=== PATIENT | male | born 1960 | race Caucasian/White ===

== ENCOUNTER 2017-09-09 19:48 | Emergency (ER) | payer OTHER ==
[~2017-09-09] VITALS: Ht 177.8 cm; Wt 112.7 kg
[~2017-09-09 19:48] MED LIST: ADVAIR HFA120 INHALA IH; ALDACTONE25 MG PO; ALLOPURINOL100 MG PO; CARDURA2 M1 PO; CARDURA4 MG PO; CARDURA8 MG PO; FUROSEMIDE40 MG PO; KLOR-CON 1010 ME1 PO; LASIX20 MG PO; LEVOFLOXACIN750 MG PO; MS CONTIN,ORAMO30 MG PO; NASONEX17 GM BOTH NARES; PROVENTIL HFA6.7 GM IH; ROXICODONE5 MG PO; SINGULAIR10 MG PO; SYNTHROID112 MCG PO; SYNTHROID125 MCG PO; VISINE15 ML BOTH EYES; VITAMIN D1000 INTUN PO; ZYRTEC10 M2 PO
[2017-09-09 22:00] LABS: HEMATOCRIT 40.9 % (38.0-50.0); HEMOGLOBIN 14.6 G/DL (12.5-16.6); MCH 34.8 PG (29.0-34.0); MCHC 35.7 G/DL (30.0-36.0); MCV 97.6 FL (86-99); PLATELET COUNT 86 K/uL (156-360); RBC DIS.WIDTH-CV 13.2 % (11.8-14.6); RED BLOOD COUNT 4.19 M/uL (4.00-5.50)
[2017-09-09 22:08] LABS: CHLORIDE 100 mEq/L (99-109); POTASSIUM 3.8 mEq/L (3.7-5.4); SODIUM 139 mEq/L (136-147)
[2017-09-09 22:10] LABS: GLUCOSE 98 mg/dL (70-99)
[2017-09-09 22:11] LABS: TOTAL PROTEIN 7.1 g/dL (6.4-8.3)
[2017-09-09 22:12] LABS: TOTAL BILIRUBIN 2.3 mg/dL (0.0-1.0)
[2017-09-09 22:14] LABS: ALKALINE PHOSPHATASE 111 IU/L (3-129); CREATININE 1.6 mg/dL (0.6-1.3); GFR ESTIMATE (CALCULATED) 48 mL/min/ (58.99-99999)
[2017-09-09 22:15] LABS: UREA NITROGEN (BUN) 22 mg/dL (9-23)
[2017-09-09 22:16] LABS: AST (GOT) 131 IU/L (2-34)
[2017-09-09 22:17] LABS: ALT (GPT) 78 IU/L (3-49)
[2017-09-09 22:50] VITALS: BP 135/91
== END 2017-09-09 22:50 | disposition home or self-care (01) ==
LOC: EME 19:48
PROVIDERS: Physician Assistant
DX: S51.801A Unspecified open wound of right forearm, initial encounter (principal); S61.402A Unspecified open wound of left hand, initial encounter; S51.002A Unspecified open wound of left elbow, initial encounter; S51.802A Unspecified open wound of left forearm, initial encounter; S81.002A Unspecified open wound, left knee, initial encounter; S81.001A Unspecified open wound, right knee, initial encounter; S81.801A Unspecified open wound, right lower leg, initial encounter; D69.6 Thrombocytopenia, unspecified; V49.40XA Driver injured in collision with unspecified motor vehicles in traffic accident, initial encounter; Y92.410 Unspecified street and highway as the place of occurrence of the external cause; J44.9 Chronic obstructive pulmonary disease, unspecified; F32.9 Major depressive disorder, single episode, unspecified; I10 Essential (primary) hypertension; Z87.891 Personal history of nicotine dependence
CPT/HCPCS: 73110; 73564; 80053; 85027; 99281; 99284